=== PATIENT | male | born 2000 | race Caucasian/White ===

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

== ENCOUNTER 2020-10-08 09:07 | Emergency (ER) | payer SELFPAY ==
[~2020-10-08] VITALS: Ht 177.8 cm; Wt 81.6 kg
[~2020-10-08 09:07] MED LIST changes: +FLUT9.9S NSEACH; +ONDA4TAB8 SL; +RT-ALBUINH IH
[2020-10-08] MEDS ORDERED: ONDANSETRON 4 MG/2 ML (SDV) Z0FRAN IVP ONE (09:45)
[2020-10-08] MEDS ORDERED: NS IV 1000 ML 1,000 ML IV SCH (09:45)
--- NOTE | 2020-10-08 09:48 | ED GI ---
General Chief Complaint: Abdominal/GI Problems Stated Complaint: DIARRHEA,MUSCLE PAIN Nursing Triage Note: PT AMB TO [facility] 6 WITH COMPLAINT OF DIARRHEA AND ABD PAIN FOR 3 WEEKS. Source of Information: Patient Exam Limitations: No Limitations History of Present Illness Date Seen by Provider: Oct 08, 2020 Time Seen by Provider: 09:35 Initial Comments Patient is a 20-year-old male who presents to the emergency department today with a chief complaint of nausea vomiting and diarrhea. Patient states his diarrhea started 2 to 3 weeks ago and he has multiple episodes daily. He describes it as yellow and watery. He states in the last couple of days he started having nausea and vomiting and every time he tries to eat he vomits. He states he is trying to eat all kinds of foods without success. He is taken a little Pepto-Bismol without any relief of his symptoms, no Imodium or nausea medications. He denies fevers or chills, he states he has a little bit of a runny nose today secondary to wearing his mask but denies congestion or sore throat or earache. No cough or shortness of breath. He states he has an occasional abdominal cramps with the diarrhea and vomiting. No problems urinating. No rashes, joint pain or swelling. He is not lightheaded or dizzy when standing up. Patient states he has vomited about 9 times since he woke up this morning at 5 AM. No prior abdominal surgeries. He is not a daily drinker. 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 He is not Covid vaccinated. All other review of systems reviewed and negative except as stated. Timing/Duration: Constant, Getting Worse Severity/Quality: Cramping Location: Generalized Abdomen Activities at Onset: None Associated Symptoms: Nausea/Vomiting Allergies and Home Medications Allergies Coded Allergies: No Known Drug Allergies (Unverified , 11/24/16) Home Medications Albuterol Sulfate 1 Puff Puff, 1-2 PUFF IH Q4H PRN for SHORTNESS OF BREATH 1 PUFF = 90 MCG Prescribed by: ARYA ROSAS on 11/24/16 1341 Fluticasone Propionate 9.9 Ml [place].susp, 2 SPRAYS NSEACH DAILY Prescribed by: ARYA ROSAS on 11/24/16 1341 Ondansetron 4 Mg Tab.rapdis, 4 MG SL Q4H PRN for NAUSEA/VOMITING-1ST LINE Prescribed by: ARYA ROSAS on 11/24/16 1341 Patient Home Medication List Home Medication List Reviewed: Yes Review of Systems Review of Systems Constitutional: see HPI EENTM: No Symptoms Reported Respiratory: No Symptoms Reported Cardiovascular: No Symptoms Reported Gastrointestinal: Diarrhea, Nausea, Vomiting Genitourinary: No Symptoms Reported Musculoskeletal: muscle cramps Skin: no symptoms reported Psychiatric/Neurological: Headache All Other Systems Reviewed Negative Unless Noted: Yes Past Sfmwvvq-Wvevvx-Vwefcz Hx Patient Social History Tobacco Use?: Yes Tobacco type used: Cigarettes Smoking Status: Current Everyday Smoker Substance use?: Yes Substance type: Marijuana Alcohol Use?: Yes Pt feels they are or have been: No Immunizations Up To Date PED Vaccines UTD: Yes Past Medical History Surgeries: Yes (dental) Respiratory: No Cardiac: No Neurological: No Gastrointestinal: Yes Gastroesophageal Reflux Musculoskeletal: No Endocrine: No Cancer: No Psychosocial: No Integumentary: No Blood Disorders: No Family Medical History No Pertinent Family Hx Physical Exam Vital Signs Vital Signs - First Documented 10/08/20 09:26 Temp 36.3 Pulse 78 Resp 17 B/P (MAP) 149/103 (118) Pulse Ox 98 O2 Delivery Room Air Capillary Refill : Less Than 3 Seconds Height/Weight/BMI Height: 5'8" Weight: 160lbs. oz. 72.624198hh; 25.00 BMI Method:Stated General Appearance: WD/WN, no apparent distress Neck: full range of motion Respiratory: lungs clear, normal breath sounds, no respiratory distress, no accessory muscle use Cardiovascular: regular rate, rhythm Gastrointestinal: soft, tenderness (Mild diffuse tenderness) Extremities: normal range of motion, non-tender, normal inspection, no pedal edema, no calf tenderness Neurologic/Psychiatric: alert, normal mood/affect, oriented x 3 Skin: normal color, warm/dry Progress/Results/Core Measures Results/Orders Lab Results Laboratory Tests Test 10/08/20 10:14 Range/Units White Blood Count 11.9 H 4.3-11.0 10^3/uL Red Blood Count 4.99 4.30-5.52 10^6/uL Hemoglobin 15.1 13.3-17.7 g/dL Hematocrit 46 40-54 % Mean Corpuscular Volume 93 80-99 fL Mean Corpuscular Hemoglobin 30 25-34 pg Mean Corpuscular Hemoglobin Concent 33 32-36 g/dL Red Cell Distribution Width 12.4 10.0-14.5 % Platelet Count 244 130-400 10^3/uL Mean Platelet Volume 11.4 9.0-12.2 fL Immature Granulocyte % (Auto) 0 % Neutrophils (%) (Auto) 83 H 42-75 % Lymphocytes (%) (Auto) 8 L 12-44 % Monocytes (%) (Auto) 7 0-12 % Eosinophils (%) (Auto) 1 0-10 % Basophils (%) (Auto) 0 0-10 % Neutrophils # (Auto) 9.9 H 1.8-7.8 10^3/uL Lymphocytes # (Auto) 0.9 L 1.0-4.0 10^3/uL Monocytes # (Auto) 0.9 0.0-1.0 10^3/uL Eosinophils # (Auto) 0.2 0.0-0.3 10^3/uL Basophils # (Auto) 0.0 0.0-0.1 10^3/uL Immature Granulocyte # (Auto) 0.0 0.0-0.1 10^3/uL Neutrophils % (Manual) 76 % Lymphocytes % (Manual) 12 % Monocytes % (Manual) 8 % Eosinophils % (Manual) 1 % Band Neutrophils 3 % Blood Morphology Comment NORMAL Sodium Level 141 135-145 MMOL/L Potassium Level 4.3 3.6-5.0 MMOL/L Chloride Level 107 98-107 MMOL/L Carbon Dioxide Level 25 21-32 MMOL/L Anion Gap 9 5-14 MMOL/L Blood Urea Nitrogen 9 7-18 MG/DL Creatinine 0.77 0.60-1.30 MG/DL Estimat Glomerular Filtration Rate 129 BUN/Creatinine Ratio 12 Glucose Level 103 70-105 MG/DL Calcium Level 9.9 8.5-10.1 MG/DL Corrected Calcium 8.5-10.1 MG/DL Total Bilirubin 0.4 0.1-1.0 MG/DL Aspartate Amino Transf (AST/SGOT) 20 5-34 U/L Alanine Aminotransferase (ALT/SGPT) 19 0-55 U/L Alkaline Phosphatase 92 40-136 U/L Total Protein 7.7 6.4-8.2 GM/DL Albumin 4.6 H 3.2-4.5 GM/DL My Orders Orders - BRENDEN SCHNEIDER MD Stool Culture (10/08/20 09:43) Occult Blood Stool (10/08/20 09:43) Parasite Scrn Stool Giard Cryp (10/08/20 09:43) Cbc With Automated Diff (10/08/20 09:43) Comprehensive Metabolic Panel (10/08/20 09:43) Ns Iv 1000 Ml (Sodium Chloride 0.9%) (10/08/20 09:45) Ondansetron Injection (Zofran Injectio (10/08/20 09:45) Manual Differential (10/08/20 10:14) C Difficile Ag + Toxin A/B. (10/08/20 11:01) Isolation Central Supply Req (10/08/20 11:01) Medications Given in ED Current Medications Medications Dose Ordered Sig/Jose Route Start Time Stop Time Status Last Admin Dose Admin Ondansetron HCl 8 mg ONCE ONCE IVP 10/08/20 09:45 10/08/20 09:46 DC 10/08/20 10:12 8 MG Vital Signs/I&O 10/08/20 09:26 Temp 36.3 Pulse 78 Resp 17 B/P (MAP) 149/103 (118) Pulse Ox 98 O2 Delivery Room Air Blood Pressure Mean: 118 Progress Progress Note : Time: 11:27 Progress Note Patient has completed 1 L of normal saline as well as had Zofran for nausea. Drinking some water now. Labs are remarkable for mildly elevated white blood cell count with a mild left shift. Chemistries are normal. Patient's exam is benign. His vital signs are stable. Patient is recommended to take homw-yuh-mfwhzxe Imodium for his diarrhea as well as Zofran for his nausea. He will complete outpatient stool studies to further evaluate the source of his diarrheal illness. Patient is instructed to follow-up with [facility]. All questions are sought and answered. Patient has no clinical or objective findings to warrant further studies from the emergency department at this time. He is given good return precautions. He verbalizes understanding and is stable for discharge. Departure Impression Primary Impression: Gastroenteritis Disposition: 01 HOME, SELF-CARE Condition: Stable Departure-Patient Inst. Decision time for Depature: 11:29 Referrals: [facility] [facility],LOCAL PHYSICIAN (PCP) Primary Care Physician Patient Instructions: Viral Gastroenteritis, Adult (DC) Add. Discharge Instructions: Drink plenty of fluids to stay well-hydrated. I have sent a prescription for nausea medications, Zofran to [facility]. Take this every 6-8 hours as needed for nausea. You can also take veui-pkj-ebtwjsz Imodium to help slow down your diarrhea. Take this only as directed. I have given you an outpatient order for stool studies to further try and identify what is causing your diarrheal illness. Return to the emergency department for worsening or persistent symptoms especially with fever, bloody stools, worsening abdominal pain or any other emergent concerning symptoms. Follow-up with [facility]. Scripts Ondansetron (Ondansetron Odt) 4 Mg Tab.rapdis 4 MG PO Q6H PRN for nausea, #20 TAB Prov: BRENDEN SCHNEIDER MD 10/08/20 BRENDEN SCHNEIDER MD Oct 08, 2020 09:47
[2020-10-08 10:20] LABS: BASOPHILS % (AUTO) 0 % (0-10); EOSINOPHILS # (AUTO) 0.2 10^3/uL (0.0-0.3); EOSINOPHILS % (AUTO) 1 % (0-10); HEMATOCRIT 46 % (40-54); HEMOGLOBIN 15.1 g/dL (13.3-17.7); LYMPHOCYTES # (AUTO) 0.9 10^3/uL (1.0-4.0); LYMPHOCYTES % (AUTO) 8 % (12-44); MEAN CORPUSCULAR HEMOGLOBIN 30 pg (25-34); MEAN CORPUSCULAR HGB CONC 33 g/dL (32-36); MEAN CORPUSCULAR VOLUME 93 fL (80-99); MEAN PLATELET VOLUME 11.4 fL (9.0-12.2); MONOCYTES # (AUTO) 0.9 10^3/uL (0.0-1.0); MONOCYTES % (AUTO) 7 % (0-12); NEUTROPHILS # (AUTO) 9.9 10^3/uL (1.8-7.8); NEUTROPHILS % (AUTO) 83 % (42-75); PLATELET COUNT 244 10^3/uL (130-400); WHITE BLOOD COUNT 11.9 10^3/uL (4.3-11.0)
[2020-10-08 10:34] LABS: ALBUMIN 4.6 GM/DL (3.2-4.5); CHLORIDE 107 MMOL/L (98-107); POTASSIUM 4.3 MMOL/L (3.6-5.0); SODIUM 141 MMOL/L (135-145)
[2020-10-08 10:36] LABS: BAND NEUTROPHILS 3 %; CALCIUM 9.9 MG/DL (8.5-10.1); EOSINOPHILS % (MANUAL) 1 %; LYMPHOCYTES % (MANUAL) 12 %; MONOCYTES % (MANUAL) 8 %; NEUTROPHILS % (MANUAL) 76 %; RBC MORPH NORMAL
[2020-10-08 10:37] LABS: GLUCOSE 103 MG/DL (70-105); TOTAL PROTEIN 7.7 GM/DL (6.4-8.2)
[2020-10-08 10:38] LABS: CARBON DIOXIDE 25 MMOL/L (21-32)
[2020-10-08 10:39] LABS: BILIRUBIN,TOTAL 0.4 MG/DL (0.1-1.0)
[2020-10-08 10:40] LABS: ALKALINE PHOSPHATASE 92 U/L (40-136); CREATININE SERUM 0.77 MG/DL (0.60-1.30); GFR ESTIMATED 129
[2020-10-08 10:41] LABS: BUN/CREATININE RATIO 12
[2020-10-08 10:43] LABS: ALANINE AMINOTRANSFERASE 19 U/L (0-55)
[2020-10-08] MEDS ORDERED: ONDA4TAB11 PO (11:31)
[2020-10-08 11:37] VITALS: BP 140/92
== END 2020-10-08 11:37 | disposition home or self-care (01) ==
LOC: EDUNIT# 09:07 → ER 09:09
DX: K52.9 Noninfective gastroenteritis and colitis, unspecified (principal); F17.210 Nicotine dependence, cigarettes, uncomplicated
CPT/HCPCS: 36415; 80053; 85007; 85027; 96361; 96374

== ENCOUNTER 2021-08-04 17:45 | Emergency (ER) | payer SELFPAY ==
[~2021-08-04] VITALS: Ht 177 cm; Wt 71.3 kg
[2021-08-04 18:16] LABS: BILIRUBIN,URINE NEGATIVE (NEGATIVE); CLARITY,URINE SL CLOUDY; COLOR,URINE YELLOW; GLUCOSE, URINE (UA) NEGATIVE (NEGATIVE); KETONES,URINE NEGATIVE (NEGATIVE); LEUKOCYTE ESTERASE ,URINE NEGATIVE (NEGATIVE); NITRITE,URINE NEGATIVE (NEGATIVE); PH,URINE 6.5 (5-9); PROTEIN,URINE TRACE (NEGATIVE)
[2021-08-04 18:23] LABS: BACTERIA,URINE TRACE /HPF; WBC,URINE RARE /HPF
[2021-08-04 18:39] LABS: BASOPHILS % (AUTO) 0 % (0-10); EOSINOPHILS # (AUTO) 0.1 10^3/uL (0.0-0.3); EOSINOPHILS % (AUTO) 1 % (0-10); HEMATOCRIT 46 % (40-54); HEMOGLOBIN 15.4 g/dL (13.3-17.7); LYMPHOCYTES # (AUTO) 2.1 10^3/uL (1.0-4.0); LYMPHOCYTES % (AUTO) 28 % (12-44); MEAN CORPUSCULAR HEMOGLOBIN 31 pg (25-34); MEAN CORPUSCULAR HGB CONC 34 g/dL (32-36); MEAN CORPUSCULAR VOLUME 90 fL (80-99); MEAN PLATELET VOLUME 12.5 fL (9.0-12.2); MONOCYTES # (AUTO) 0.6 10^3/uL (0.0-1.0); MONOCYTES % (AUTO) 7 % (0-12); NEUTROPHILS # (AUTO) 4.9 10^3/uL (1.8-7.8); NEUTROPHILS % (AUTO) 63 % (42-75); PLATELET COUNT 215 10^3/uL (130-400); WHITE BLOOD COUNT 7.7 10^3/uL (4.3-11.0)
[2021-08-04 18:44] LABS: ALBUMIN 4.8 GM/DL (3.2-4.5); CHLORIDE 102 MMOL/L (98-107); POTASSIUM 3.8 MMOL/L (3.6-5.0); SODIUM 139 MMOL/L (135-145)
[2021-08-04 18:45] LABS: CALCIUM 9.8 MG/DL (8.5-10.1)
[2021-08-04] MEDS ORDERED: ONDANSETRON 4 MG/2 ML (SDV) Z0FRAN IVP ONE (18:45)
[2021-08-04] MEDS ORDERED: LACTATED RINGERS 1,000 ML IV ONE ×2 (18:45)
[2021-08-04] MEDS ORDERED: PANTOPRAZOLE 40 MG (PROTONIX) VIAL IV ONE (18:45)
[2021-08-04 18:46] LABS: GLUCOSE 96 MG/DL (70-105)
[2021-08-04 18:47] LABS: TOTAL PROTEIN 7.5 GM/DL (6.4-8.2)
[2021-08-04 18:48] LABS: BILIRUBIN,TOTAL 0.9 MG/DL (0.1-1.0); CARBON DIOXIDE 25 MMOL/L (21-32)
[2021-08-04 18:50] LABS: ALKALINE PHOSPHATASE 84 U/L (40-136); CREATININE SERUM 0.76 MG/DL (0.60-1.30); GFR ESTIMATED 131
[2021-08-04 18:51] LABS: BUN/CREATININE RATIO 12
[2021-08-04 18:53] LABS: ALANINE AMINOTRANSFERASE 12 U/L (0-55)
[2021-08-04 18:54] LABS: CREATINE KINASE 70 U/L (30-200); LIPASE 18 U/L (8-78)
--- NOTE | 2021-08-04 19:07 | ED Abdominal Pain ---
General Chief Complaint: Abdominal/GI Problems Stated Complaint: ABD PAIN Nursing Triage Note: Pt states that he was working on a house last Thursday and got too hot. He has since then has n/v/d, abd pain, and some intermittent left chest pain. Source of Information: Patient Exam Limitations: No Limitations History of Present Illness Date Seen by Provider: Aug 04, 2021 Time Seen by Provider: 18:15 Initial Comments Patient to ER by private conveyance chief complaint of 6 to 7 days of abdominal pain diarrhea nausea vomiting. He says been working out in the heat a lot and got overheated last week. Has been trying to drink Gatorade copiously but having poor urine output for the past couple days. Everything he eats goes right through him. No fevers chills sick contacts or recent travel. Otherwise healthy individual with no significant medical history. Family history pertinent for mother had a heart attack in her early 50s. He is a pack and half day smoker who has been trying to wean down recently. Today his pain started radiating up into his chest momentarily. Allergies and Home Medications Allergies Coded Allergies: No Known Drug Allergies (Unverified , 11/24/16) Patient Home Medication List Home Medication List Reviewed: Yes Albuterol Sulfate (Proair Hfa) 1 Puff Puff, 1-2 PUFF IH Q4H PRN for SHORTNESS OF BREATH Prescribed by: ARYA ROSAS on 11/24/16 1341 Fluticasone Propionate (Flonase Allergy Relief) 9.9 Ml Amo.susp, 2 SPRAYS NSEACH DAILY Prescribed by: ARYA ROSAS on 11/24/16 1341 Ondansetron (Zofran Odt) 4 Mg Tab.rapdis, 4 MG SL Q4H PRN for NAUSEA/VOMITING- 1ST LINE Prescribed by: ARYA ROSAS on 11/24/16 1341 Ondansetron (Ondansetron Odt) 4 Mg Tab.rapdis, 4 MG PO Q6H PRN for nausea Prescribed by: BRENDEN SCHNEIDER on 10/08/20 1131 Review of Systems Review of Systems Constitutional: No chills, No diaphoresis EENTM: No Blurred Vision, No Double Vision Respiratory: Denies Cough, Denies Shortness of Air Cardiovascular: Denies Chest Pain, Denies Lightheadedness Gastrointestinal: See HPI, Abdominal Pain; Denies Constipated, Denies Diarrhea; Nausea, Poor Appetite, Poor Fluid Intake, Vomiting Genitourinary: Denies Burning, Denies Discharge Musculoskeletal: No back pain, No joint pain All Other Systems Reviewed Negative Unless Noted: Yes Past Ikrtjdl-Mzvvkr-Vdjuhg Hx Patient Social History Tobacco Use?: No Use of E-Cig and/or Vaping dev: Yes E-Cig or Vaping type used: Nicotine Use of E-Cig and/or Vaping Iain: Current Everyday User Substance use?: No Alcohol Use?: Yes Alcohol type: Beer Alcohol Frequency: Couple times a week Pt feels they are or have been: No Immunizations Up To Date PED Vaccines UTD: Yes Past Medical History Surgeries: Yes (dental) Respiratory: No Cardiac: No Neurological: No Gastrointestinal: Yes Gastroesophageal Reflux Musculoskeletal: No Endocrine: No Cancer: No Psychosocial: No Integumentary: No Blood Disorders: No Family Medical History No Pertinent Family Hx Physical Exam Vital Signs Vital Signs - First Documented 08/04/21 17:52 Temp 36.9 Pulse 70 Resp 14 B/P (MAP) 149/94 (112) Pulse Ox 98 O2 Delivery Room Air Capillary Refill : Less Than 3 Seconds Height/Weight/BMI Height: 5'8" Weight: 160lbs. oz. [id number]; 22.00 BMI Method:Stated General Appearance: WD/WN, mild distress HEENT: PERRL/EOMI, pharynx normal Neck: full range of motion, supple, normal inspection Respiratory: lungs clear, normal breath sounds, no respiratory distress, no accessory muscle use Cardiovascular: normal peripheral pulses, regular rate, rhythm Peripheral Pulses: 2+ Radial Pulses (R), 2+ Radial Pulses (L) Gastrointestinal: normal bowel sounds; No non tender (Diffusely tender all 4 quadrants without mesenteric signs, McBurney's point tenderness, Rovsing sign, psoas sign. Etc.); soft Extremities: normal range of motion, normal capillary refill Neurologic/Psychiatric: alert, normal mood/affect, oriented x 3 Skin: normal color, warm/dry Progress/Results/Core Measures Results/Orders Lab Results Laboratory Tests Test 08/04/21 18:04 08/04/21 18:09 Range/Units White Blood Count 7.7 4.3-11.0 10^3/uL Red Blood Count 5.04 4.30-5.52 10^6/uL Hemoglobin 15.4 13.3-17.7 g/dL Hematocrit 46 40-54 % Mean Corpuscular Volume 90 80-99 fL Mean Corpuscular Hemoglobin 31 25-34 pg Mean Corpuscular Hemoglobin Concent 34 32-36 g/dL Red Cell Distribution Width 12.2 10.0-14.5 % Platelet Count 215 130-400 10^3/uL Mean Platelet Volume 12.5 H 9.0-12.2 fL Immature Granulocyte % (Auto) 0 % Neutrophils (%) (Auto) 63 42-75 % Lymphocytes (%) (Auto) 28 12-44 % Monocytes (%) (Auto) 7 0-12 % Eosinophils (%) (Auto) 1 0-10 % Basophils (%) (Auto) 0 0-10 % Neutrophils # (Auto) 4.9 1.8-7.8 10^3/uL Lymphocytes # (Auto) 2.1 1.0-4.0 10^3/uL Monocytes # (Auto) 0.6 0.0-1.0 10^3/uL Eosinophils # (Auto) 0.1 0.0-0.3 10^3/uL Basophils # (Auto) 0.0 0.0-0.1 10^3/uL Immature Granulocyte # (Auto) 0.0 0.0-0.1 10^3/uL Sodium Level 139 135-145 MMOL/L Potassium Level 3.8 3.6-5.0 MMOL/L Chloride Level 102 98-107 MMOL/L Carbon Dioxide Level 25 21-32 MMOL/L Anion Gap 12 5-14 MMOL/L Blood Urea Nitrogen 9 7-18 MG/DL Creatinine 0.76 0.60-1.30 MG/DL Estimat Glomerular Filtration Rate 131 BUN/Creatinine Ratio 12 Glucose Level 96 70-105 MG/DL Calcium Level 9.8 8.5-10.1 MG/DL Corrected Calcium 8.5-10.1 MG/DL Total Bilirubin 0.9 0.1-1.0 MG/DL Aspartate Amino Transf (AST/SGOT) 16 5-34 U/L Alanine Aminotransferase (ALT/SGPT) 12 0-55 U/L Alkaline Phosphatase 84 40-136 U/L Total Creatine Kinase 70 30-200 U/L Troponin I < 0.028 <0.028 NG/ML C-Reactive Protein High Sensitivity 0.03 0.00-0.50 MG/DL Total Protein 7.5 6.4-8.2 GM/DL Albumin 4.8 H 3.2-4.5 GM/DL Lipase 18 8-78 U/L Urine Color YELLOW Urine Clarity SL CLOUDY Urine pH 6.5 5-9 Urine Specific [place] 1.020 1.016-1.022 Urine Protein TRACE H NEGATIVE Urine Glucose (UA) NEGATIVE NEGATIVE Urine Ketones NEGATIVE NEGATIVE Urine Nitrite NEGATIVE NEGATIVE Urine Bilirubin NEGATIVE NEGATIVE Urine Urobilinogen 4.0 < = 1.0 MG/DL Urine Leukocyte Esterase NEGATIVE NEGATIVE Urine RBC (Auto) NEGATIVE NEGATIVE Urine RBC NONE /HPF Urine WBC RARE /HPF Urine Crystals NONE /LPF Urine Bacteria TRACE /HPF Urine Casts NONE /LPF Urine Mucus LARGE H /LPF Urine Culture Indicated NO My Orders Orders - ANAYELI HERNANDEZ Ua Culture If Indicated (08/04/21 18:06) Cbc With Automated Diff (08/04/21 18:28) Comprehensive Metabolic Panel (08/04/21 18:28) Hs C Reactive Protein (08/04/21 18:28) Lipase (08/04/21 18:28) Creatine Kinase (08/04/21 18:28) Ekg Tracing (08/04/21 18:28) Continuous Ekg Monitoring (08/04/21 18:28) Troponin I [place] (08/04/21 18:28) Ed Iv/Invasive Line Start (08/04/21 18:40) Lactated Ringers (Lr 1000 Ml Iv Solution (08/04/21 18:45) Lactated Ringers (Lr 1000 Ml Iv Solution (08/04/21 18:45) Pantoprazole Injection (Protonix Injecti (08/04/21 18:45) Ondansetron Injection (Zofran Injectio (08/04/21 18:45) Medications Given in ED Current Medications Medications Dose Ordered Sig/Jose Route Start Time Stop Time Status Last Admin Dose Admin Lactated Ringer's 1,000 ml @ 0 mls/hr Q0M ONCE IV 08/04/21 18:45 08/04/21 18:46 DC 08/04/21 19:35 1,000 MLS/HR Ondansetron HCl 8 mg ONCE ONCE IVP 08/04/21 18:45 08/04/21 18:46 DC 08/04/21 19:35 8 MG Pantoprazole 40 mg ONCE ONCE IV 08/04/21 18:45 08/04/21 18:46 DC 08/04/21 19:35 40 MG Vital Signs/I&O 08/04/21 17:52 Temp 36.9 Pulse 70 Resp 14 B/P (MAP) 149/94 (112) Pulse Ox 98 O2 Delivery Room Air Blood Pressure Mean: 112 Progress Progress Note #1: Time: 19:07 Progress Note 2 L of fluid, CPK, lipase, labs. Suspect he has heat exhaustion versus a gastroenteritis/colitis from a viral. Ondansetron and pantoprazole. Progress Note #2: Time: 19:54 Progress Note Labs are okay. His nausea is under control. He is got about 500 cc of fluid in and states he starting to feel little better. We will give him the option to complete the second liter or go but he is ready to go soon. I will make sure he has some nausea medicine and a note for work as well as return precautions. Questions were answered and patient is happy with this plan Initial ECG Impression Date: Aug 04, 2021 Initial ECG Impression Time: 18:32 Initial ECG Rate: 48 Initial ECG Rhythm: Normal Sinus Initial ECG Intervals: Normal Initial ECG Impression: Normal Comment Normal sinus rhythm without clinically relevant ST elevation or depression. Left shift of the mean electrical axis. Departure Impression Primary Impression: Heat exhaustion Qualified Codes: T67.5XXA - Heat exhaustion, unspecified, initial encounter Additional Impression: Dehydration Disposition: 01 HOME, SELF-CARE Condition: Improved Departure-Patient Inst. Decision time for Depature: 20:01 Referrals: [facility],LOCAL PHYSICIAN (PCP) Primary Care Physician Patient Instructions: Dehydration, Adult ED, Heat Exhaustion and Heat Stroke (DC), Quitting Smoking ED Add. Discharge Instructions: Make sure you are drinking plenty of fluids. Sports drinks are a good choice. Zofran 1 to 2 tablets every 6 hours under the tongue and allow to dissolve as necessary to treat nausea and/or vomiting. If you continue to have diarrhea you can slow it down with Imodium 1 tablet every 4 hours as needed for loose, watery stools. Return to the ER if you are having worsening symptoms, increasing pain or other worrisome concerns. If you need help with smoking cessation [facility] has both counselors, as well as who can help with prescriptions and I encourage you to follow them up. It is integral to your health given your family history to quit smoking as soon as possible to prevent early onset heart disease. All discharge instructions reviewed with patient and/or family. Voiced understanding. Scripts Ondansetron (Ondansetron Odt) 4 Mg Tab.rapdis 4-8 MG PO Q6H PRN for NAUSEA/VOMITING, #20 TAB 0 Refills Prov: ANAYELI HERNANDEZ 08/04/21 Work/School Note: Work Release Form Date Seen in the Emergency Department: Aug 04, 2021 Return to Work: Aug 07, 2021 Restrictions: No Restrictions ANAYELI HERNANDEZ Aug 04, 2021 19:06
[2021-08-04] MEDS ORDERED: ONDA4TAB11 PO (19:57)
[2021-08-04] MEDS ORDERED: RX-ONDANSETRON 4 MG ODT (ZOFRAN) PPK #4 PO STA (19:58)
[2021-08-04 20:25] VITALS: BP 133/78
== END 2021-08-04 20:25 | disposition home or self-care (01) ==
LOC: EDUNIT# 17:45 → ER 17:47
DX: T67.5XXA Heat exhaustion, unspecified, initial encounter (principal); E86.0 Dehydration; F17.290 Nicotine dependence, other tobacco product, uncomplicated; X30.XXXA Exposure to excessive natural heat, initial encounter; Y99.0 Civilian activity done for income or pay
CPT/HCPCS: 36415; 80053; 81000; 82550; 83690; 84484; 85025; 86141; 93005